=== PATIENT | male | born 1950 | race Two or more races ===

== ENCOUNTER 2017-08-31 19:03 | Emergency (ER) | payer MEDICARE, MEDICAID ==
[~2017-08-31] VITALS: Ht 185.4 cm; Wt 102.5 kg
--- NOTE | 2017-08-31 19:30 | NUR ---
BIB FAMILY C/O RIGHT LEG SWEELING LEFT LEG PAIN SINCE THIS MORNING. DENIES TRAUMA. VSS. SEEN BY MD FOR EVAL. SAFETY AND COMFORT MEASURES PROVIDED. WILL MONITOR.
--- NOTE | 2017-08-31 19:50 | NUR ---
IV ACCESS STARTED. BLOOD DRAWN FOR LABS.
[2017-08-31 20:00] LABS: BASOPHILS # (AUTO) 0.1 /CMM (0.0-0.2); BASOPHILS % (AUTO) 0.8 % (0.0-2.0); EOSINOPHILS # (AUTO) 0.2 /CMM (0.0-0.7); EOSINOPHILS % (AUTO) 1.6 % (0.0-6.0); HEMATOCRIT 44 % (39-51); HEMOGLOBIN 14.6 g/dL (13.5-17.5); LYMPHOCYTES # (AUTO) 1.3 /CMM (0.8-4.8); LYMPHOCYTES % (AUTO) 12.8 % (20.0-44.0); MEAN CORPUSCULAR HEMOGLOBIN 30 PG (26.0-33.0); MEAN CORPUSCULAR HGB CONC 33 g/dl (31.0-36.0); MEAN CORPUSCULAR VOLUME 92 fL (80-96); MONOCYTES # (AUTO) 0.8 /CMM (0.1-1.30); MONOCYTES % (AUTO) 7.8 % (2.0-12.0); NEUTROPHILS # (AUTO) 7.8 /CMM (1.8-8.9); PLATELET COUNT (AUTO) 135 /CMM (150-450); RDW COEFFICIENT OF VARIATION 11.9 (11.5-15.0); WHITE BLOOD COUNT (AUTO) 10.2 K/uL (4.3-11.0)
[2017-08-31 20:09] LABS: CALCIUM, SERUM 8.6 mg/dL (8.5-10.1); CREATININE 1.2 mg/dL (0.6-1.3); POTASSIUM 4.8 mmol/L (3.5-5.1)
[2017-08-31 20:14] LABS: INR 0.88 (0.87-1.13); PROTHROMBIN TIME 9.1 SECS (9.5-12.7)
--- NOTE | 2017-08-31 21:40 | NUR ---
DAYSI WELLS AT BS.
--- NOTE | 2017-08-31 23:36 | NUR ---
IV removed. Catheter intact and site benign. Pressure and 4x4 applied to site. No bleeding noted. Patient discharged to home in stable condition. Written and verbal after care instructions given. Patient verbalizes understanding of instruction. ambulatory with a steady gait with personal cane. instructed not to drive. pt verbalize understanding accompanied by family. pt w/c per family request.
[2017-08-31 23:51] VITALS: BP 125/69
== END 2017-08-31 23:52 | disposition home or self-care (01) ==
LOC: ER 19:07
DX: M79.89 Other specified soft tissue disorders (principal); E78.00 Pure hypercholesterolemia, unspecified; I10 Essential (primary) hypertension; I73.9 Peripheral vascular disease, unspecified; M17.0 Bilateral primary osteoarthritis of knee
CPT/HCPCS: 36415; 75635; 80048; 85025; 85730; 93925; 93970; 96374; 99285; A4606; J2270 ×2; J7050; Q9967; Z7610